=== PATIENT | female | born 1995 ===

== ENCOUNTER → 2017-04-17 | Outpatient (REF) | LOC: WSOH 10:34 | DX: Z00.00 Encounter for general adult medical examination without abnormal findings (principal) ==

== ENCOUNTER → 2017-04-19 | Outpatient (REF) | LOC: WSOH 10:15 | DX: Z02.89 Encounter for other administrative examinations (principal) ==

== ENCOUNTER → 2017-07-23 | Outpatient (REF) | LOC: WSOH 09:34 | DX: Z02.89 Encounter for other administrative examinations (principal) ==